=== PATIENT | male | born 1995 | race Caucasian/White ===

== ENCOUNTER 2016-07-04 13:32 | Emergency (ER) | payer OTHER ==
[~2016-07-04] VITALS: Ht 195.6 cm; Wt 115.0 kg
[2016-07-04 13:36] VITALS: TEMP 36.6; Ht 195.6 cm; Wt 115.0 kg
--- NOTE | 2016-07-04 14:44 | DIAGNOSTIC IMAGING REPORT ---
RIGHT KNEE 3 VIEWS CLINICAL HISTORY: Right knee instability following twisting injury. COMPARISON: None FINDINGS: Alignment of the right knee is anatomic. No acute fracture or suspicious lesion is present. No joint effusion is present. Joint spaces are preserved. IMPRESSION: Unremarkable right knee radiographs. Electronically signed by: Jesús Carlson M.D. 07/04/2016 2:43 PM Dictated Date/Time: 07/04/2016 2:42 PM
[2016-07-04 15:05] VITALS: BP 147/99; PULSE 92; O2SAT 96
--- NOTE | 2016-07-04 20:08 | EMERGENCY ROOM VISIT NOTE ---
ED Visit Note First contact with patient: 14:01 CHIEF COMPLAINT: Right Knee injury HISTORY OF PRESENT ILLNESS: This 20-year-old white male patient injured his right knee today in a [employer] game. He was running on the field and attempted to change direction. He pivoted on his right knee. There was a pop and he had immediate onset of pain. His knee has felt unstable. No prior history of significant knee injury. He denies any catching or locking. No numbness or tenting. Minimal swelling so far. His aunt and uncle accompany him today. This was a noncontact injury. REVIEW OF SYSTEM: HEENT: No dizziness, visual problems, hearing loss, or tinnitus. There is no difficulty swallowing and no oral lesions are present. PULMONARY: No cough, shortness of breath, sputum production or hemoptysis. CARDIOVASCULAR: No chest pain, palpitations, shortness of breath or peripheral edema. GASTROINTESTINAL: No diarrhea, constipation, nausea, vomiting, or abdominal pain. GENITOURINARY: No dysuria, frequency, urgency or nocturia. NEUROLOGIC: No weakness, muscle tenderness, epilepsy or history of neurological problems. MUSCULOSKELETAL: No history of joint tenderness/swelling. No history of arthritis or arthralgias. SKIN: No rashes or lesions. PSYCHIATRIC: No history of depression or mental illness. ENDOCRINE: No history of diabetes, thyroid disorders, or abnormal hair growth. PMH: Benign Previous surgeries: Tonsillectomy with adenoidectomy August 2000 Current medications: None Allergies: NKDA Family history: Significant for diabetes and hypertension. Parents are living. SOCIAL HISTORY: Patient lives with roommates. Employed. No tobacco use, occasional EtOH use. Plays club lacrosse for [employer] PHYSICAL EXAM: Vital Signs: Reviewed Nurse's notes. Afebrile. MENTAL STATUS: Alert, oriented, and cooperative. Laying on a bed. Skin: Warm and dry with good turgor. No rashes or lesions. No ecchymosis or erythema. The patient is not diaphoretic. No abrasions. No significant intra-articular effusion. KNEE : The right knee has no significant tenderness over the medial or lateral joint line. Stable collateral ligaments. No increase in pain with stressing of the MCL or LCL. Positive Vinny and positive anterior drawer. No palpable firm end point. He has full terminal extension. Flexion to around 100. No defect of the patellar tendon or quadriceps tendon. He is able to set his quad and perform straight leg raise. Intact motor function to the ankle. Neurologic: Gross sensation is intact across the right leg by soft touch. Peripheral pulses are 2+. EMERGENCY DEPARTMENT COURSE: X-ray of the right knee does not show any fractures or fluid in the joint. These were read by radiology. DIAGNOSIS: Right knee anterior cruciate ligament tear DISCHARGE INSTRUCTIONS: Patient was educated regarding today's findings. Conservative care measures were discussed. Robert wrap was applied for compression. He was given a Knee immobilizer to use until seen by [facility] orthopedics. Start Tylenol 650mg and ibuprofen, 600 mg every 6 hours if needed for pain. Ice to and elevation to the knee frequently for the next 72 hours. Stay off the leg as much as possible and see his orthopedist this week for reexamination. Call tomorrow. Crutches were given and crutch instruction was reviewed. Weight-bear as tolerated using crutches for assistance. He was reassured that I do not suspect fracture. Possibility of meniscal injury and additional ligamentous injury was considered. Current/Historical Medications No Active Prescriptions or Reported Meds Allergies Coded Allergies: NO KNOWN DRUG ALLERGIES (Unverified Allergy, Unknown, ., 07/04/16) Unobtainable (Verified Allergy, Unknown, Unable, 12/28/14) Vital Signs Date Time Temp Pulse Resp B/P Pulse Ox O2 Delivery O2 Flow Rate FiO2 07/04/16 15:05 92 18 147/99 96 07/04/16 13:36 36.6 102 16 142/85 94 Room Air Departure Information Prescriptions No Active Prescriptions or Reported Meds Referrals No Doctor, Assigned (PCP) Patient Instructions [facility]
== END 2016-07-04 15:06 | disposition home or self-care (01) ==
LOC: C.EDB 13:35 → C.EDD 15:06
DX: S83.511A Sprain of anterior cruciate ligament of right knee, initial encounter (principal); X50.9XXA Other and unspecified overexertion or strenuous movements or postures, initial encounter; Y92.328 Other athletic field as the place of occurrence of the external cause; Y93.65 Activity, lacrosse and field hockey

== ENCOUNTER → 2016-07-09 | Outpatient (CLI) | payer OTHER ==
--- NOTE | 2016-07-09 08:45 | DIAGNOSTIC IMAGING REPORT ---
MRI right knee RIGHT LOWER EXT JOINT WITHOUT CLINICAL HISTORY: R KNEE EFFUSION Right trauma. Pain. TECHNIQUE: MRI multi axial acquisition COMPARISON STUDY: None FINDINGS: Bone contusion involving the posterior aspect of the medial as well as lateral tibial plateau. Mild contusion mid lateral femoral condyle the collateral ligaments structures appear to be intact. Medial as well as lateral menisci are unremarkable in overall configuration. High-grade partial tear anterior cruciate ligament. Posterior cruciate ligament is intact. Several small synechiae of the suprapatellar bursa. Medial lateral patellar retinaculum are intact. No evidence for chondromalacia. IMPRESSION: 1. High-grade partial and/or near complete tear anterior cruciate ligament. 2. Small joint effusion. 3. Bone contusion involving the posterior aspect of the medial as well as lateral tibial plateaus as well as lateral femoral condyle. 4. Small joint effusion Electronically signed by: Chago Holliday M.D. 07/09/2016 8:44 AM Dictated Date/Time: 07/09/2016 8:38 AM
== END | disposition home or self-care (01) ==
LOC: C.MRI 07:29
PROVIDERS: ATTEND Orthopaedic Surgery Sports Medicine
DX: M25.461 Effusion, right knee (principal); S83.511A Sprain of anterior cruciate ligament of right knee, initial encounter; S80.01XA Contusion of right knee, initial encounter; X58.XXXA Exposure to other specified factors, initial encounter